=== PATIENT | female | born 1955 | race Caucasian/White ===

== ENCOUNTER 2017-01-29 04:40 | Emergency (ER) | payer OTHER ==
--- NOTE | 2017-01-29 05:06 | PDOC ---
Attending Attestation - Resident Resident Name: Calli Young - ED Attending Attestation I have performed the following: I have examined & evaluated the patient, The case was reviewed & discussed with the resident, I agree w/resident's findings & plan, Exceptions are as noted - HPI HPI: 01/29/17 05:04 Palpitations, Recent Colonoscopy, some anxiety as well - Physicial Exam PE: 01/29/17 05:06 VSS// NAD - Medical Decision Making 01/29/17 05:[address] Calli Barrett's Assessment and Plan
[2017-01-29] MEDS ORDERED: SODIUM CHLORIDE 1,000 ML IV STA (05:12)
[2017-01-29] MEDS ORDERED: ASPIRIN 81 MG CHEWABLE TABLETS PO ONE (05:12)
[2017-01-29 05:21] VITALS: BMI 22.3
[2017-01-29] MEDS ORDERED: LORazepam 1 MG TABLET PO ONE (05:33)
--- NOTE | 2017-01-29 05:44 | PDOC ---
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 This feels like her chronic tachycardia for which she takes 25mg metoprolol/day (just increased from 12.5/day), but a bit worse. She had a colonoscopy yesterday and has been feeling dehydrated after the bowel prep. She also notes a short episode of left ankle pain yesterday, but no swelling or redness, and this has since resolved. She has struggled with anxiety for the past two months since her father , and does note feeling anxious today. However, she denies any chest pain, shortness of breath, cough, recent travel or prolonged immobility, estrogen use, history of clotting disorders, or other recent symptoms. Past History - Past Medical History Allergies/Adverse Reactions: Allergies Allergy/AdvReac Type Severity Reaction Status Date / Time No Known Allergies Allergy Verified 02/17/13 10:16 Home Medications: Ambulatory Orders Levothyroxine [Synthroid] 100 mcg PO AM 02/17/13 Calcium Carbonate [Calcium] 1 tab PO DAILY 01/29/17 Cholecalciferol (Vitamin D3) [Vitamin D3 -] 400 unit PO DAILY 01/29/17 Magnesium 1 tab PO DAILY 01/29/17 Metoprolol Succinate [Toprol Xl -] 25 mg PO DAILY 01/29/17 Multivitamin [One Daily] 1 each PO DAILY 01/29/17 Suicide Attempt (Hx): No Thyroid Disease: Yes (hypothyroid) - Psycho/Social/Smoking Cessation Hx Anxiety: No Suicidal Ideation: No Smoking Status: No Smoking History: Never smoked Number of Cigarettes Smoked Daily: 0 Information on smoking cessation initiated: No Hx Alcohol Use: No Drug/Substance Use Hx: No Substance Use Type: None Review of Systems - Review of Systems Constitutional: No: Chills, Fever, Unexplained wgt Loss HEENTM: No: Nose Congestion, Throat Pain Respiratory: No: Cough, Shortness of Breath Cardiac (ROS): Yes: Palpitations. No: Chest Pain ABD/GI: No: Constipated, Diarrhea, Nausea, Vomiting : No: Burning, Dysuria Musculoskeletal: No: Back Pain, Neck Pain Integumentary: No: Bruising, Rash Neurological: No: Headache, Numbness, Tingling, Weakness, Dizziness Psychiatric: Yes: Anxiety Endocrine: No: Unexplained Weight Gain, Unexplained Weight Loss Hematologic/Lymphatic: No: Blood Clots *Physical Exam - Vital Signs Last Vital Signs Temp Pulse Resp BP Pulse Ox 85 18 144/97 100 01/29/17 04:57 01/29/17 04:57 01/29/17 04:57 01/29/17 04:57 - Physical Exam General Appearance: Yes: Nourished, Appropriately Dressed, Other (nontoxic and well-appearing woman who is pleasant and conversive, answering questions appropriately, accompanied at bedside by supportive ). No: Apparent Distress HEENT: positive: EOMI, Normal Voice, Hearing Grossly Normal. negative: Scleral Icterus (R), Scleral Icterus (L), Nasal Congestion Neck: positive: Trachea midline, Supple. negative: Tender, Rigid Respiratory/Chest: positive: Lungs Clear, Normal Breath Sounds. negative: Chest Tender, Respiratory Distress, Labored Respiration, Crackles, Rhonchi, Stridor, Wheezing Cardiovascular: positive: Regular Rhythm, Regular Rate. negative: Murmur Gastrointestinal/Abdominal: positive: Normal Bowel Sounds, Flat, Soft. negative : Tender, Organomegaly, Pulsatile Mass, Guarding Musculoskeletal: positive: Normal Inspection. negative: Decreased Range of Motion, Vertebral Tenderness Extremity: positive: Normal Capillary Refill, Normal Inspection, Normal Range of Motion, Other (ankles appear equal bilaterally, no swelling, no erythema, no calf tenderness). negative: Tender, Cyanosis Integumentary: positive: Normal Color, Dry, Warm. negative: Erythema, Rash, Bruising Neurologic: positive: social sciences instructor II-XII NML intact (grossly), Fully Oriented, Alert, Normal Mood/Affect, Normal Response, Motor Strength 5/5 (grossly) ED Treatment Course - LABORATORY CBC & Chemistry Diagram: 01/29/17 06:10 01/29/17 06:10 - RADIOLOGY Radiology Studies Ordered: Category Date Time Status CHEST PA & LAT [RAD] Stat Radiology 01/29/17 05:12 Ordered Medical Decision Making - Medical Decision Making This is a 61 yof with h/o tachycardia, hypothyroidism, p/w rapid palpitations. Has remained <100 here in the ED, with <80 after about the first 15 minutes here in the ED. On exam she is very well-appearing, no swelling/pain BLE, normal heart and lung sounds. DDX includes electrolyte disturbance, dehydration, thyroid hormone overreplacement, PE, ACS, chronic tachycardia. Ordered is CBCD, CMP, Mg, Phos, cardiac profile, TSH, EKG, CXR, Ativan. D-dimer is considered but would be expected to be elevated in this 61 yof with colonoscopy yesterday. 01/29/17 07:05 *DC/Admit/Observation/Transfer Diagnosis at time of Disposition: Palpitations - Discharge Dispostion Disposition: HOME Condition at time of disposition: Stable Admit: No - Patient Instructions Printed Discharge Instructions: DI for Palpitations Additional Instructions: You were seen in the emergency room today for rapid palpitations. We are so sorry that you were feeling ill! We did blood tests which were normal except for your thyroid test which indicated your thyroid hormone level is still a little bit low. 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 We also did an electrocardiogram which was normal, and a chest x-ray which was also normal. Please follow up with your regular doctor as scheduled today. Hydrate well and return to the emergency department for any new or worsening symptoms like chest pain. Be well!
[2017-01-29] MEDS ORDERED: ASPIRIN 81 MG CHEWABLE TABLETS ONE (06:02)
[2017-01-29] MEDS ORDERED: LORazepam 0.5 MG TABLET ONE (06:02)
[2017-01-29 06:21] LABS: BASOPHIL 1.1 % (0-2.0); EOSINOPHIL 0.5 % (0-4.5); MCH 30.6 pg (25.7-33.7); MCHC 34.4 g/dl (32.0-36.0); MEAN CELL VOLUME 88.9 fl (80-96); MEAN PLT VOLUME 8.6 fl (7.5-11.1); NEUTROPHILS 72.8 % (42.8-82.8); PLATELET COUNT 245 K/MM3 (134-434); RDW 12.6 % (11.6-15.6); WHITE BLOOD COUNT 8.4 K/mm3 (4.0-10.0)
[2017-01-29 06:33] LABS: INR 0.98 (0.82-1.09); PROTHROMBIN TIME (PATIENT) 10.8 SEC (9.98-11.88)
[2017-01-29 06:45] LABS: ALBUMIN 3.9 g/dl (3.4-5.0); ANION GAP 12 (8-16); BILIRUBIN,TOTAL 0.8 mg/dL (0.2-1.0); CALCIUM 8.9 mg/dL (8.5-10.1); CO2 21 mmol/L (21-32); CREATININE 0.9 mg/dL (0.55-1.02); GLUCOSE,RANDOM 101 mg/dL (74-106); MAGNESIUM 2.1 mg/dL (1.8-2.4); SGOT/AST 14 U/L (15-37); SGPT/ALT 26 U/L (12-78); TOT PROT 6.9 g/dl (6.4-8.2)
[2017-01-29 06:48] LABS: ALK PHOS 64 U/L (45-117); CPK 122 IU/L (26-192); TROPONIN I < 0.02 ng/ml (0.00-0.05)
[2017-01-29 07:51] VITALS: BP 113/64; PULSE 84; TEMP 98.2
--- NOTE | 2017-01-29 09:37 | EKG ---
Test Reason : Blood Pressure : / mmHG Vent. Rate : 093 BPM Atrial Rate : 093 BPM P-R Int : 132 ms QRS Dur : 078 ms QT Int : 358 ms P-R-T Axes : 076 057 038 degrees QTc Int : 445 ms NORMAL SINUS RHYTHM POSSIBLE LEFT ATRIAL ENLARGEMENT WHEN COMPARED WITH ECG OF 17-FEB-2013 10:25, NO SIGNIFICANT CHANGE WAS FOUND Confirmed by JUANJO DURBIN MD ([id number]) on 01/29/2017 9:36:44 AM Referred By: Confirmed By:JUANJO DURBIN MD
== END 2017-01-29 07:48 | disposition home or self-care (01) ==
LOC: JER 04:40
PROC: 3E0337Z Introduction of Electrolytic and Water Balance Substance into Peripheral Vein, Percutaneous Approach (ICD-10-PCS; principal; 2017-01-29)
DX: R00.2 Palpitations (principal); E03.9 Hypothyroidism, unspecified; I51.9 Heart disease, unspecified
CPT/HCPCS: 36415; 71020-TC; 80053; 83735; 84443; 84484; 85025; 85610; 93005; 93010; 99284-25

== ENCOUNTER 2017-03-06 23:22 | Emergency (ER) | payer OTHER ==
[2017-03-06 23:30] VITALS: BP 150/94; PULSE 101; TEMP 98.6; BMI 23.1
--- NOTE | 2017-03-07 00:49 | PDOC ---
History of Present Illness - General History Source: Patient Exam Limitations: No Limitations - History of Present Illness Initial Comments: 03/07/17 00:55 The patient is a 62 year old female, with a significant past medical history of hypothyroidism and anxiety, who presents to the emergency department for evaluation of intermittent palpitations beginning approx one month ago. The patient reports that she only experiences the palpations at night. She reports the palpitations wake her up from her sleep and she experiences associated symptoms of diaphoresis. The patient describes the palpitations as an anxiety like feeling and reports nothing makes the palpitations better or worse. The patient reports she was seen approx. one month ago at [facility] for palpations after she felt dehydrated s/p a colonoscopy. She denies chest pain or shortness of breath. She denies recent weight loss or weight gain. She denies recent fever, chills, headache or dizziness. She denies recent nausea, vomit, diarrhea or constipation. She denies blurry vision and denies calf tenderness. Allergies: NKA Past surgical history: Hysterectomy. <Jae Glez - Last Filed: 03/07/17 00:55> <Hattie Marina - Last Filed: 03/07/17 03:07> - General Chief Complaint: Palpitations Stated Complaint: PALPITATIONS Time Seen by Provider: 03/07/17 00:27 Past History <Jae Glez - Last Filed: 03/07/17 00:55> - Past Medical History Anemia: No Asthma: No Cancer: No Cardiac Disorders: Yes CVA: No COPD: No DVT: No Dementia: No Diabetes: No Dialysis: No GI Disorders: No Disorders: No HTN: No Hypercholesterolemia: No Kidney Stones: No Liver Disease: No Psychiatric Problems: Yes (Anxiety) Seizures: No Thyroid Disease: Yes (hypothyroid) Lung CA: No - Surgical History Abdominal Surgery: No Appendectomy: No Cardiac Surgery: No Cholecystectomy: No Gastric Stapling: No GI Surgery: No Lung Surgery: No Neurologic Surgery: No - Immunization History Td Vaccination: No TDAP Vaccination: No - Suicide/Smoking/Psychosocial Hx Smoking Status: No Smoking History: Never smoked Number of Cigarettes Smoked Daily: 0 Hx Alcohol Use: No Drug/Substance Use Hx: No Substance Use Type: None <Hattie Marina - Last Filed: 03/07/17 03:07> - Past Medical History Allergies/Adverse Reactions: Allergies Allergy/AdvReac Type Severity Reaction Status Date / Time No Known Allergies Allergy Verified 03/06/17 23:30 Home Medications: Ambulatory Orders Levothyroxine [Synthroid] 100 mcg PO AM 02/17/13 Calcium Carbonate [Calcium] 1 tab PO DAILY 01/29/17 Cholecalciferol (Vitamin D3) [Vitamin D3 -] 400 unit PO DAILY 01/29/17 Magnesium 1 tab PO DAILY 01/29/17 Metoprolol Succinate [Toprol Xl -] 25 mg PO DAILY 01/29/17 Multivitamin [One Daily] 1 each PO DAILY 01/29/17 Review of Systems - Review of Systems Comments:: 03/07/17 01:00 GENERAL/CONSTITUTIONAL: +Diaphoresis (resolved). No fever or chills. No weakness. HEAD, EYES, EARS, NOSE AND THROAT: No change in vision. No ear pain or discharge. No sore throat. CARDIOVASCULAR: +Palpitations. No chest pain or shortness of breath. RESPIRATORY: No cough, wheezing, or hemoptysis. GASTROINTESTINAL: No nausea, vomiting, diarrhea or constipation. GENITOURINARY: No dysuria, frequency, or change in urination. MUSCULOSKELETAL: No joint or muscle swelling or pain. No neck or back pain. SKIN: No rash NEUROLOGIC: No headache, vertigo, loss of consciousness, or change in strength/ sensation. ENDOCRINE: No increased thirst. No abnormal weight change. HEMATOLOGIC/LYMPHATIC: No anemia, easy bleeding, or history of blood clots. ALLERGIC/IMMUNOLOGIC: No hives or skin allergy. <Jae Glez - Last Filed: 03/07/17 00:55> *Physical Exam - Vital Signs Last Vital Signs Temp Pulse Resp BP Pulse Ox 98.6 F 101 H 20 150/94 99 03/06/17 23:27 03/06/17 23:27 03/06/17 23:27 03/06/17 23:27 03/06/17 23:27 - Physical Exam Comments: 03/07/17 01:02 GENERAL: Awake, alert, and fully oriented, in no acute distress HEAD: No signs of trauma EYES: PERRLA, EOMI, sclera anicteric, conjunctiva clear ENT: Auricles normal inspection, hearing grossly normal, nares patent, oropharynx clear without exudates. Moist mucosa NECK: Normal ROM, supple, no lymphadenopathy, JVD, or masses LUNGS: Breath sounds equal, clear to auscultation bilaterally. No wheezes, and no crackles HEART: +Tachycardia. Normal S1 and S2, no murmurs, rubs or gallops ABDOMEN: Soft, nontender, normoactive bowel sounds. No guarding, no rebound. No masses EXTREMITIES: Normal range of motion, no edema. No clubbing or cyanosis. No cords, erythema, or tenderness NEUROLOGICAL: Cranial nerves II through XII grossly intact. Normal speech, normal gait SKIN: Warm, Dry, normal turgor, no rashes or lesions noted. <Jae Glez - Last Filed: 03/07/17 00:55> - Vital Signs Last Vital Signs Temp Pulse Resp BP Pulse Ox 98.6 F 101 H 20 150/94 99 03/06/17 23:27 03/06/17 23:27 03/06/17 23:27 03/06/17 23:27 03/06/17 23:27 <Hattie Marina - Last Filed: 03/07/17 03:07> ED Treatment Course - LABORATORY CBC & Chemistry Diagram: 03/07/17 01:43 03/07/17 01:43 <Hattie Marina - Last Filed: 03/07/17 03:07> Medical Decision Making - Medical Decision Making 03/07/17 03:01 Pt comes with palpitations. She is anxious and fears that she may be having an GA. Pt has a normal EKG and she has normal labs. She states that she has had similar palpitations in the past due to her thyroid, due to panic after her dad 's 6 months ago, in the past when her mom had open heart surg. Also she has had holter monitoring. She follows with Dr. Ornelas; she has been to 2 endocrinologists in the past, but she admits that she has not been to the co founder and president in a long time. Pt is feeling better in the ER. Exam is normal. <Hattie Marina - Last Filed: 03/07/17 03:07> *DC/Admit/Observation/Transfer - Attestations Scribe Attestion: 03/07/17 01:02 Documentation prepared by Jae Glez, acting as emergency medical tech for Hattie Marina MD. <Jae Glez - Last Filed: 03/07/17 00:55> - Discharge Dispostion Admit: No <Hattie Marina - Last Filed: 03/07/17 03:07> Diagnosis at time of Disposition: Palpitations - Discharge Dispostion Disposition: HOME Condition at time of disposition: Stable - Referrals Referrals: STAFF,NOT ON [Primary Care Provider] - - Patient Instructions Printed Discharge Instructions: DI for Palpitations
[2017-03-07] MEDS ORDERED: SODIUM CHLORIDE 0.9% 500 ML INFUS.BAG IV ONE (00:51)
[2017-03-07 01:58] LABS: BASOPHIL 2.3 % (0-2.0); EOSINOPHIL 0.4 % (0-4.5); MCH 30.6 pg (25.7-33.7); MCHC 34.4 g/dl (32.0-36.0); NEUTROPHILS 76.8 % (42.8-82.8); PLATELET COUNT 227 K/MM3 (134-434); RDW 12.8 % (11.6-15.6); WHITE BLOOD COUNT 7.3 K/mm3 (4.0-10.0)
[2017-03-07 02:22] LABS: ALBUMIN 3.7 g/dl (3.4-5.0); ANION GAP 9 (8-16); BILIRUBIN,TOTAL 0.3 mg/dL (0.2-1.0); CALCIUM 8.8 mg/dL (8.5-10.1); CO2 26 mmol/L (21-32); CREATININE 0.7 mg/dL (0.55-1.02); GLUCOSE,RANDOM 129 mg/dL (74-106); SGOT/AST 11 U/L (15-37); SGPT/ALT 21 U/L (12-78); TOT PROT 6.7 g/dl (6.4-8.2)
[2017-03-07 02:23] LABS: ALK PHOS 64 U/L (45-117)
[2017-03-07 03:07] LABS: THYROID STIMULATING HORMONE 3.06 uIU/ml (0.358-3.74)
--- NOTE | 2017-03-09 19:24 | EKG ---
Test Reason : Blood Pressure : / mmHG Vent. Rate : 097 BPM Atrial Rate : 097 BPM P-R Int : 122 ms QRS Dur : 080 ms QT Int : 342 ms P-R-T Axes : 071 060 040 degrees QTc Int : 434 ms NORMAL SINUS RHYTHM POSSIBLE LEFT ATRIAL ENLARGEMENT BORDERLINE ECG WHEN COMPARED WITH ECG OF 29-JAN-2017 04:46, NO SIGNIFICANT CHANGE WAS FOUND Confirmed by SUZAN SHIELDS MD ([id number]) on 03/09/2017 7:23:47 PM Referred By: Confirmed By:SUZAN SHIELDS MD
== END 2017-03-07 03:21 | disposition home or self-care (01) ==
LOC: JER 23:22
DX: R00.2 Palpitations (principal); F41.9 Anxiety disorder, unspecified; E03.9 Hypothyroidism, unspecified
CPT/HCPCS: 36415; 71020-TC; 80053; 84443; 85025; 93005; 93010; 99284-25

== ENCOUNTER 2022-12-23 09:09 | Day surgery (SDC) | payer OTHER, BC ==
[2022-12-17 11:44] VITALS: BMI 24.9
[2022-12-23] MEDS ORDERED: BUPIVACAINE HCL/PF 0.5% (5 MG/ML) 30 ML VIAL IJ ONE (11:15)
[2022-12-23] MEDS ORDERED: MIDAZOLAM HCL 2 MG/2 ML SINGLE DOSE VIAL ONE (11:15)
[2022-12-23] MEDS ORDERED: DEXAMETHASONE SOD PHOSPHATE/PF 10 MG/ML SDV ONE (11:15)
[2022-12-23] MEDS ORDERED: BUPIVACAINE HCL/PF 0.5% (5MG/ML) 10 ML VIAL ONE (11:33)
[2022-12-23] MEDS ORDERED: ceFAZolin SODIUM 1 GM VIAL ONE (11:45)
[2022-12-23] MEDS ORDERED: PROPOFOL 20 ML ONE (11:45)
[2022-12-23] MEDS ORDERED: DEXAMETHASONE SOD PHOSPHATE 4 MG/1 ML VIAL ONE (11:45)
[2022-12-23] MEDS ORDERED: ONDANSETRON 4 MG/2 ML VIAL ONE (11:45)
[2022-12-23] MEDS ORDERED: oxyCODONE HCL 5 MG TABLET PO PRN (13:07)
[2022-12-23] MEDS ORDERED: LACTATED RINGERS SOLUTION 1,000 ML IV SCH (13:15)
[2022-12-23 13:52] VITALS: RESP 16; TEMP 97.5
[2022-12-23 13:57] VITALS: PULSE 78
[2022-12-23 14:00] VITALS: BP 132/81
== END 2022-12-23 14:01 | disposition home or self-care (01) ==
LOC: FASU 09:09
PROVIDERS: ATTEND Orthopaedic Surgery Hand Surgery
PROC: 0LN60ZZ Release Left Lower Arm and Wrist Tendon, Open Approach (ICD-10-PCS; 2022-12-23)
PROC: 0PSJ04Z Reposition Left Radius with Internal Fixation Device, Open Approach (ICD-10-PCS; principal; 2022-12-23 12:05)
DX: S52.572A Other intraarticular fracture of lower end of left radius, initial encounter for closed fracture (principal); X58.XXXA Exposure to other specified factors, initial encounter; Y93.9 Activity, unspecified; Y92.9 Unspecified place or not applicable
CPT/HCPCS: 25290; 25609; C1713; 73110-TC-LT-FY; 73130-TC-LT-FY; 94760